=== PATIENT | male | born 1965 | race Caucasian/White ===

== ENCOUNTER → 2020-10-16 15:43 | Outpatient (CLI) | payer OTHER, MEDICAID, SELFPAY ==
[2020-06-04 09:40] VITALS: BMI 28.7
--- NOTE | 2020-10-16 15:51 | MRI_ITS ---
STUDY: MRI CERVICAL SPINE WITHOUT CONTRAST REASON FOR EXAM: Male, 55 years old. pain, neck pain, left arm tingling and numbness TECHNIQUE: Standardized fat and water weighted pulse sequences were obtained in the sagittal and axial planes. COMPARISON: Cervical spine x-rays 06/04/2020 FINDINGS: Normal foramen magnum and brainstem-cervical cord junction. Normal craniovertebral junction. Normal anterior atlantoaxial articulation. Normal odontoid process. Decreased cervical lordosis. Normal vertebral bodies and posterior osseous elements. C2-3: Normal endplates. Normal disc height, signal and morphology. Normal central canal and intervertebral neural foramina. C3-4: Normal endplates. Normal disc height, signal and morphology. Normal central canal and intervertebral neural foramina. C4-5: Normal endplates. Normal disc height, signal and morphology. Normal central canal and intervertebral neural foramina. C5-6: Anterior endplate spurring. Normal disc height, signal and minimal bulging of the disc. Normal central canal and intervertebral neural foramina. C6-7: Anterior endplate spurring. Normal disc height, signal and minimal bulging of the disc and tiny right foraminal disc/osteophyte protrusion. Normal central canal. Mild narrowing of the right nerve root foramen. C7-T1: Normal endplates. Normal disc height, signal and minimal bulging of the disc with tiny left posterolateral/foraminal disc protrusion. Normal central canal. Mild left neuroforaminal encroachment. Normal cervical cord. Normal visualized soft tissue structures. No significant change since prior exam given inherent differences in imaging modalities MRI/Spine Cervical (Routine) IMPRESSION: No evidence for acute fracture or other significant bony pathology.. Mild spondylosis. Minor right neuroforaminal stenosis at C6-7 secondary to tiny right renal cyst disc/osteophyte protrusion. Mild left neuroforaminal stenosis at C7-T1 secondary to minimal bulging of the disc with tiny left posterolateral/foraminal disc protrusion Electronically Signed: Geovanny Blanton MD at 17:11 EDT , Service support ,
--- NOTE | 2020-10-16 15:51 | MRI_ITS ---
STUDY: MRI LEFT SHOULDER REASON FOR EXAM: Left shoulder pain and decreased range of motion since last January. TECHNIQUE: Standardized fat and water weighted pulse sequences were obtained in all 3 orthogonal planes. COMPARISON: None. FINDINGS: There is supraspinatus and infraspinatus tendinosis, a small low to intermediate grade partial-thickness tear of the articular surface of the distal supraspinatus/infraspinatus tendon junction at the greater tuberosity insertion (T2 sagittal image 10) measuring 0.7 cm in length and a small linear low-grade partial-thickness tear of the articular surface of the distal supraspinatus tendon (T2 coronal image 13). There is an intrasubstance partial thickness tear of the superior fibers of the distal subscapularis tendon (T2 axial images 14, 15) measuring approximately 1.8 cm in length. Normal teres minor tendon. Normal supraspinatus muscle. Normal infraspinatus muscle. Normal subscapularis muscle. Normal teres minor muscle. Normal glenohumeral articulation. Normal humeral head and visualized proximal humerus. Normal biceps labral complex. Normal intracapsular long biceps tendon. Normal labrum. Normal capsulo- ligamentous complex. There is acromioclavicular arthrosis with mild hypertrophic changes effacing the subacromial fat (T2 sagittal image 4). There is a Type II morphology (curved), with a neutral orientation. There is a small volume of subacromial-subdeltoid bursal fluid (T2 coronal images 11-13). Normal visualized coracohumeral and coracoacromial ligaments. Normal deltoid muscle. Normal trapezius muscle. MRI/Upper Ext Joint Only(Routine) IMPRESSION: Small partial-thickness tears of the supraspinatus/infraspinatus tendon junction and supraspinatus tendon. Intrasubstance partial-thickness tear of the subscapularis tendon. Acromioclavicular arthrosis. Mild subacromial-subdeltoid bursitis. Electronically Signed: Merritt Sams MD at 7:44 EDT Tel , Service support ,
== END ==
PROVIDERS: Referring Provider Orthopaedic Surgery; Visit Provider Orthopaedic Surgery
DX: S13.4XXA Sprain of ligaments of cervical spine, initial encounter (principal)
CPT/HCPCS: 72141; 73221

== ENCOUNTER → 2024-04-26 | Outpatient (CLI) | payer SELFPAY ==
[2024-04-26 15:02] LABS: Absolute Neutrophil Count 2.8 X10^3/uL (2.0-7.7); Basophil# 0.04 X10^3/uL; Basophil% 0.5 % (0-1); Eosinophil# 0.83 X10^3/uL; Eosinophils% 10.9 % (0-5); Hematocrit 47.8 % (40-54); Lymphocyte % 36.9 % (19-41); Mean Corp Hgb Conc 33.5 g/dL (32-36); Mean Corpuscular Hgb 30.6 pg (27.0-32.0); Mean Corpuscular Volume 91.4 fL (80-94); Mean Platelet Vol. 8.7 fl (6.2-12.0); Monocyte# 1.09 X10^3/uL; Monocyte% 14.4 % (0-10); NRBC Flagged by Analyzer 0 % (0-5); Neutrophil # 2.78 X10^3/uL (2.7-7.7); Neutrophil % 36.8 % (47-70); Platelet Count 294 K/mm3 (150-450); RBC Distribution Width CV 12.7 % (11.6-14.6); RBC Distribution Width SD 42.3 fl (35.1-43.9); Red Blood Count 5.23 M/mm3 (4.6-6.2); White Blood Count 7.6 K/mm3 (4.4-11.0)
[2024-04-26 15:53] LABS: AST(SGOT) 32 U/L (15-37); Alanine Aminotransfer ALT/SGPT 72 U/L (16-61); Albumin, Serum 3.8 g/dL (3.2-5.0); Alkaline Phosphatase 87 U/L (45-117); Anion Gap 5 (5-15); BUN 23 mg/dL (7-18); BUN/Creat Ratio 21.9 RATIO (10-20); Calcium,Total 9.9 mg/dL (8.5-10.1); Chloride 103 mmol/L (98-107); Cholesterol 209 mg/dL (200); Creatinine, Serum 1.05 mg/dL (0.70-1.30); EST Glomerular Filtration Rate 76 mL/min (>60); Est Glom Filt Rate - Afr Amer 92 mL/min (>60); Glucose 173 mg/dL (74-106); High Density Lipoprotein 58 mg/dL; Potassium 4.2 mmol/L (3.5-5.1); Protein, Total 7.8 g/dL (6.4-8.2); Sodium Level 135 mmol/L (136-145); Triglycerides 232 mg/dL; Very Low Density Lipoprotein 46 mg/dL (5-40)
[2024-04-27 11:26] LABS: Hemoglobin A1c 6.9 % (3.8-5.6)
== END | disposition home or self-care (01) ==
PROVIDERS: PCP Internal Medicine; Referring Provider Internal Medicine; Visit Provider Internal Medicine
DX: I10 Essential (primary) hypertension (principal); R73.09 Other abnormal glucose; Z13.6 Encounter for screening for cardiovascular disorders
CPT/HCPCS: 36415; 80053; 80061; 83036; 85025